=== PATIENT | male | born 2000 | race Caucasian/White ===

== ENCOUNTER → 2019-09-10 13:27 | Outpatient (CLI) | payer OTHER, SELFPAY ==
--- NOTE | 2019-09-10 | DI.RAD.S_ITS ---
PROCEDURE: FL SHOULDER INJECTION MR/CT RT INDICATIONS: PAIN IN RIGHT SHOULDER TECHNIQUE: The indications, alternatives, benefits, risks, and complications of the procedure were explained to the patient. Written informed consent was obtained and placed in the chart. The shoulder was examined fluoroscopically and a site for needle placement chosen for entry into the glenohumeral joint from an anterior approach. The skin was prepped and draped in a sterile fashion, and 1% lidocaine infiltrated from skin down to joint capsule. A spinal needle was inserted into the glenohumeral joint, and a small amount of iodinated contrast media injected to confirm intra-articular placement of the needle tip. This was followed by approximately 12 mL dilute solution of a gadolinium containing MR contrast agent. The needle was removed and a dressing was applied. The patient was given postprocedural instructions and sent to the MR suite for MR imaging. FINDINGS: A single fluoroscopic spot image demonstrates intra-articular location of injected iodinated contrast. IMPRESSION: Successful fluoroscopically guided administration of dilute Gadolinium solution into the shoulder joint for MR arthrogram. Dictated by: Rodney Fontaine M.D. on 09/10/2019 at 15:41 Approved by: Rodney Fontaine M.D. on 09/10/2019 at 15:41
--- NOTE | 2019-09-10 | DI.MRI.S_ITS ---
PROCEDURE: MR SHOULDER RT W CON INDICATIONS: PAIN IN RIGHT SHOULDER TECHNIQUE: After the administration of 12 mL of dilute intra-articular Gadolinium contrast, oblique coronal T1 and T2 spin echo with fat saturation, oblique sagittal T1 spin echo with and without fat saturation, oblique sagittal T2 fast spin echo with fat saturation, axial T1 spin echo with fat saturation through the shoulder. COMPARISON: None. FINDINGS: Image quality: Excellent. Rotator cuff: Supraspinatus tendinopathy with low-grade bursal and articular surface fraying. No discrete rotator cuff tear The infraspinatus, teres minor and subscapularis tendons appear intact throughout. No rotator cuff muscle atrophy on sagittal images. Bones and bursae: No bone marrow contusions or fractures. No acromioclavicular joint degeneration. The acromion demonstrates conventional anatomy, without an os acromiale. There is subacromial-subdeltoid bursal fluid without T1 shortening suggestive of bursitis . Lateral downsloping appearance the acromion Capsule and soft tissues: The labrum and glenohumeral ligaments appear intact. The long head of the biceps tendon demonstrates normal location and morphology. The rotator interval appears normal, without fibrosis. The coracohumeral ligament is of normal thickness. No intra-articular bodies. IMPRESSION: Mild supraspinatus tendinopathy with low-grade bursal and articular surface fraying. Subacromial-subdeltoid bursitis Lateral downsloping appearance of the acromion. Dictated by: Rodney Fontaine M.D. on 09/10/2019 at 16:02 Approved by: Rodney Fontaine M.D. on 09/10/2019 at 16:08
== END ==
PROVIDERS: Visit Provider Orthopaedic Surgery
DX: M25.511 Pain in right shoulder (principal); M75.51 Bursitis of right shoulder
CPT/HCPCS: 23350; 73222; 77002; A9579

== ENCOUNTER 2019-11-06 10:58 | Day surgery (SDC) | payer OTHER, SELFPAY ==
[2019-11-06] VITALS (10 sets, daily range): BP systolic 94–140; BP diastolic 40–86; PULSE 61–95; RESP 11–16; TEMP 36.5–36.9; O2SAT 96–100; BMI 22.4
[2019-11-06] MEDS: LACTATED RINGERS 1,000 ML 100 ML IV ×2 (13:06→15:48)
--- NOTE | 2019-11-06 14:13 | PM.PREOP ---
Pre-operative Note Interval Note History & Physical reviewed/Exam performed by Physician: Yes Changes to H&P: No H&P completed within 30 days and has changed as indicated here:: History and physical examination on file.
[2019-11-06] MEDS: CEFAZOLIN 1 GM/50 ML FROZ.PIGGY IV (14:34)
--- NOTE | 2019-11-06 14:51 | SUR.OPER ---
Supine on padded OR bed, head on pillow, arms secured on padded arm boards at <90 degrees abduction, legs uncrossed, safety belt at thigh, tape over blanket over lower legs.
[2019-11-06] MEDS: BUPIVACAINE LIPOSOME 266 MG/20 ML VIAL INJ (15:17)
[2019-11-06] MEDS: BUPIVACAINE 0.5% (PF) VIAL 30 ML INJ (15:18)
--- NOTE | 2019-11-06 15:40 | PM.OP.1 ---
Operative Date/Time/Diagnoses Date of procedure: 11/06/19 Time of procedure: 15:40 Pre-op diagnosis: Symptomatic left varicocele Post-op diagnosis: same Procedure & Clinicians Procedure: Left varicocelectomy Same procedure as scheduled: Yes Indications: Symptomatic left varicocele Surgeon: Kristen Triplett Click Yes if Unassisted: Yes Anesthesia Type: General and Local Operative Notes Closure Type: primary Specimen(s): none sent Estimated Blood Loss (mL): 0 Tourniquet time (min): 0 Procedure in detail: The patient was positioned supine and was administered general anesthesia. The lower abdomen genitalia and groin were then prepped and draped in sterile fashion. A solution of 0.5% Marcaine with epinephrine was then used to infiltrate the skin subcutaneous tissue and left iliac fossa. Next a small oblique incision was made over the proximal left inguinal canal cautery and blunt dissection were then used to divide the subcutaneous fat and Luther's fascial layer down to the level of the external oblique. The external oblique fascia was then incised in line with its fibers a short distance over the internal ring. The left spermatic cord was then identified and carefully isolated mobilized and brought up into the incision proper. Using blunt technique cremasteric fibers were carefully divided in line with its fibers. Eventually a dominant 4 mm vein was identified and this was isolated proximally and distally ligated with 2 0 Ethibond and divided sharply there were a couple of small vena cubic on today's so sedated with the gonadal artery which were left undisturbed as what was the valve. The ileal inguinal nerve was identified before mobilization of the cord was retracted out of the operative field. Now a solution of 1.33% Exparel was utilized to infiltrate the proximal ileal inguinal nerve, external oblique fascia, Luther's fascia, and the skin. The external oblique fascia was then reapproximated using a running 2 0 PDS. Luther's fascia was reapproximated due using the same suture and technique. Finally the skin was edges were reapproximated using interrupted with a subcuticular of 4 0 Monocryl. His skin surface was then cleaned and dried a small Telfa dressing was applied to the incision line and an op site dressing was then applied overlapping the Telfa and the approximated to the skin surface. The patient was then awakened transferred to a [place], and transported to recovery in stable condition. Complications: none Post-operative Condition: stable Disposition: PACU Plan for aftercare: Discharge home
== END 2019-11-06 16:50 | disposition home or self-care (01) ==
PROVIDERS: Visit Provider Specialist
PROC: (CPT 55250; principal; 2019-11-06 13:15)
DX: I86.1 Scrotal varices (principal)
CPT/HCPCS: 55530; C9290; J1100; J1885; J2250; J2405; J2704; J3010